=== PATIENT | male | born 1990 | race Caucasian/White ===

== ENCOUNTER 2023-12-20 09:33 | Emergency (ER) | payer OTHER ==
[~2023-12-20] VITALS: Ht 182.9 cm; Wt 89.0 kg
[2023-12-20] MEDS ORDERED: CELEBREX200 MG PO (09:55)
[2023-12-20] MEDS ORDERED: CEPHALEXIN500 M1 PO (11:37)
[2023-12-20 11:47] VITALS: BP 147/107
== END 2023-12-20 11:47 | disposition home or self-care (01) ==
LOC: ED 09:33
DX: S60.452A Superficial foreign body of right middle finger, initial encounter (principal); W45.8XXA Other foreign body or object entering through skin, initial encounter; Z79.1 Long term (current) use of non-steroidal anti-inflammatories (NSAID)
CPT/HCPCS: 64450; 99283-25